=== PATIENT | female | born 1980 | race Caucasian/White ===

== ENCOUNTER 2017-10-01 06:30 | Inpatient (IN) ==
[2017-10-01] MEDS ORDERED: D5 1/2 NS 1000 ML 1,000 ML IV ONE (06:48)
--- NOTE | 2017-10-01 07:24 | DR.OB ---
OB Quick Note - Assessment/Plan Assessment/Plan: L&D 10/01/17 at 7:05am S-No complaint. O-Afebrile,VSS QIJ=678 with good LTV, +accel, no decel. CTX=none CVX=2cm/50%/-1/VTX AROM with clear fluid. IUPC and FSE placed. A-IUP at 39 6/7 weeks for induction AMA P-Begin pitocin induction Anticipate
[2017-10-01] MEDS ORDERED: PHENERGAN INJ 25 MG IV PRN ×2 (07:42→13:52)
[2017-10-01] MEDS ORDERED: REGLAN INJ 10 MG VIAL IVP PRN (07:42)
[2017-10-01] MEDS ORDERED: D5 1/2 NS 1000 ML 1,000 ML IV SCH (07:42)
[2017-10-01] MEDS ORDERED: NUBAIN INJ 200 MG VIAL MULTIDOSE IVP PRN (07:42)
[2017-10-01] MEDS ORDERED: MORPHINE SULFATE INJ 2 MG INJ IVP PRN (07:42)
[2017-10-01] MEDS ORDERED: D5LR 1L W PITOCIN 10 UNITS/L 10 UNITS/1,000 ML BAG IV PRN (07:42)
[2017-10-01] MEDS ORDERED: PITOCIN IVP ONE (07:42)
[2017-10-01] MEDS ORDERED: D5LR 1L W PITOCIN 10 UNITS/L 10 UNITS/1,000 ML BAG IV ONE (07:50)
[2017-10-01] MEDS ORDERED: D5 1/2 NS 1L W PITOCIN 20 UNITS/L 20 UNITS/1,000 ML BAG IV ONE (07:50)
[2017-10-01] MEDS ORDERED: PITOCIN ONE (07:50)
[2017-10-01] MEDS ORDERED: FENTANYL INJ 100 mcg ONE (11:12)
[2017-10-01] MEDS ORDERED: LR 1000 ML IV 1,000 ML IV ONE (11:12)
[2017-10-01] MEDS ORDERED: XYLOCAINE 1 % (PLAIN) ONE (11:12)
[2017-10-01] MEDS ORDERED: NAROPIN EPIDURAL 0.2% + FENTANYL 90MCG 60 ML EPI ONE (11:13)
[2017-10-01] MEDS ORDERED: ADRENALINE CHL INJ ONE (11:13)
[2017-10-01] MEDS: D5 1/2 NS 1000 ML 1,000 ML with PITOCIN 20 UNITS IV SCH ×2 (14:45)
[2017-10-01] MEDS ORDERED: AMBIEN PO PRN (15:12)
[2017-10-01] MEDS ORDERED: ADACEL or BOOSTRIX TDaP VACCINE IM ONE (15:12)
[2017-10-01] MEDS ORDERED: MILK OF MAGNESIA PO PRN (15:12)
[2017-10-01] MEDS: DERMOPLAST SPRAY TOP PRN ×2 (15:44→21:18)
--- NOTE | 2017-10-01 16:49 | DR.OB ---
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 Repetitive late decels noted. Head and direct OA. Suction applied for 3 pushes but cont. to pop off. Wilks forceps easily applied with good fit. Head delivered with one push. Forceps released. Nuchal cord x 1 reduced. Nose and mouth bulb suctioned. Body delivered over intact perineum. Cord clamped x 2 and cut. handed to attendant moving all extremities. Cord sent for gases. Placenta delivered spontaneously / intact / 3 vessel cord. No CVX tears. A small second degree midline tear noted and repaired with 0-vicryl in usual fashion. Viable male , VTX/OA, wt=7'15" and 9/9, stable to NBN. Mother stable to RR. QEW=940vd.
[2017-10-01] MEDS: ZANTAC PO SCH (20:36)
[2017-10-01] MEDS: MOTRIN TAB 800 MG PO PRN (23:27)
[2017-10-02] MEDS: D5 1/2 NS 1000 ML 1,000 ML with PITOCIN 20 UNITS IV SCH ×4 (00:26→05:20)
[2017-10-02 05:18] LABS: HEMATOCRIT 33.2 % (36.0-47.0); HEMOGLOBIN 11.6 g/dL (12.0-16.0)
[2017-10-02] MEDS: ZANTAC PO SCH ×2 (08:06→20:41)
[2017-10-02] MEDS ORDERED: PRENATAL PLUS PO SCH (09:00)
[2017-10-02] MEDS: MOTRIN TAB 800 MG PO PRN ×2 (11:25→23:37)
[2017-10-02] MEDS: DERMOPLAST SPRAY TOP PRN (11:26)
[2017-10-03] MEDS: ZANTAC PO SCH (08:48)
[2017-10-03 10:27] VITALS: BP 148/82
== END 2017-10-03 11:40 | disposition home or self-care (01) | DRG 775 ==
LOC: LD 06:34 → MED/SURG 14:49
PROVIDERS: ADMIT Specialist; ATTEND Specialist
DX: Z3A.39 39 weeks gestation of pregnancy; O70.1 Second degree perineal laceration during delivery; Z37.0 Single live birth
CPT/HCPCS: 36415; 59409; 85014; 85018; A4216; S0197; J0171; J2590; J3010; J7120; S5010

== ENCOUNTER 2020-12-24 06:23 | Inpatient (IN) ==
[2020-12-24 07:02] LABS: AMNISURE ROM TEST THERE IS A RUPTURE (NO RUPTURE)
[2020-12-24] MEDS: PITOCIN ONE ×2 (07:08→08:57)
[2020-12-24] MEDS ORDERED: STADOL INJ ONE (07:21)
[2020-12-24] MEDS: D5 1/2 NS 1,000 ML 1,000 ML with PITOCIN 20 UNITS IV SCH ×4 (07:30→20:36)
[2020-12-24] MEDS ORDERED: D5 1/2 NS 1,000 ML 1,000 ML IV ONE (07:31)
--- NOTE | 2020-12-24 07:31 | DR.OB ---
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 Foot noted in vagina. Patient opted for breech delivery and not able to stop pushing. AROM with clear fluid. Foot noted to deliver (footling breech). Other leg and body delivered vaginally with one push. Body wrapped in towel. Head delivered over intact perineum with several pushes. Nuchal cord x 1 noted. Cord clamped x 2 and cut. Infant handed to attedants. Cord sent for gases. Placenta delivered spontaneously / intact / 3 vessel cord. No CVX tears. A small midline introital tear noted and requiring suture of 0-vicryl in usual fashion. Viable male moving all extremities well. Mother stable to RR. KSY=495ab. 2/8 and wt.=6'6".
[2020-12-24] MEDS ORDERED: BETADINE SOLN ONE (07:32)
[2020-12-24] MEDS ORDERED: D5 1/2 NS 1,000 mL + PITOCIN 20 UNITS/L IV 20 UNITS/1,000 ML BAG IV ONE (07:32)
[2020-12-24] MEDS ORDERED: D5 1/2 NS 1,000 ML 1,000 ML IV SCH (08:00)
[2020-12-24 08:15] LABS: BLOOD UREA NITROGEN 9 mg/dL (7-18); CALCIUM 8.4 mg/dL (8.5-10.1); CARBON DIOXIDE 19.4 mmol/L (21-32); CHLORIDE 105 mmol/L (98-107); COR NA(FOR HYPERGLY) 140 mmol/L (136-145); CREATININE 0.91 mg/dL (0.55-1.02); SODIUM 139 mmol/L (136-145); eGFR NON BLACK RACES > 60 (>60)
[2020-12-24 08:20] LABS: BASOPHILS % (AUTO) 0 % (0.2-1.0); EOSINOPHILS % (AUTO) 0.1 % (0.9-2.9); HEMATOCRIT 38.4 % (36.0-47.0); HEMOGLOBIN 13.6 g/dL (12.0-16.0); LYMPHOCYTES # (AUTO) 0.8 X10^3/uL (1.3-2.9); LYMPHOCYTES % (AUTO) 8.5 % (21.0-51.0); MEAN CORPUSCULAR HEMOGLOBIN 32.1 pg (27.0-34.0); MEAN CORPUSCULAR HGB CONC 35.4 g/dL (33.0-35.0); MEAN CORPUSCULAR VOLUME 90.7 fL (80.0-100.0); MEAN PLATELET VOLUME 9.5 fL (7.4-11.0); MONOCYTES # (AUTO) 0.4 x10^3/uL (0.3-0.8); MONOCYTES % (AUTO) 4.7 % (0.0-13.0); NEUTROPHILS # (AUTO) 8.1 x10^3/uL (2.2-4.8); NEUTROPHILS % (AUTO) 86.7 % (42.0-75.0); PLATELET COUNT 175 X10^3/uL (150.0-450.0); RED BLOOD COUNT 4.23 X10^6/uL (3.5-5.4); RED CELL DISTRIBUTION WIDTH 13.2 % (11.6-16.5); WHITE BLOOD COUNT 9.3 X10^3/uL (3.6-10.0)
[2020-12-24] MEDS ORDERED: PHENERGAN INJ 25 MG IM PRN (08:40)
[2020-12-24] MEDS ORDERED: MOTRIN TAB 800 MG PO PRN (08:40)
[2020-12-24] MEDS ORDERED: AMBIEN PO PRN ×2 (09:20→09:25)
[2020-12-24] MEDS ORDERED: MILK OF MAGNESIA PO PRN ×2 (09:20→09:25)
[2020-12-24] MEDS ORDERED: DERMOPLAST PAIN RELIEF SPRAY TOP PRN ×2 (09:20→09:25)
[2020-12-25 05:07] LABS: HEMATOCRIT 32.9 % (36.0-47.0); HEMOGLOBIN 11.7 g/dL (12.0-16.0)
[2020-12-25] MEDS: D5 1/2 NS 1,000 ML 1,000 ML with PITOCIN 20 UNITS IV SCH ×2 (05:22)
[2020-12-25 08:27] VITALS: BP 122/88
[2020-12-25] MEDS ORDERED: PRENATAL PLUS PO SCH ×2 (09:00)
[2020-12-25] MEDS ORDERED: ADACEL or BOOSTRIX TDaP VACCINE IM ONE ×2 (09:05→09:09)
== END 2020-12-25 10:45 | disposition home or self-care (01) | DRG 807 ==
LOC: ER 06:23 → LD 06:46 → MED/SURG 10:03
PROVIDERS: ADMIT Specialist; ATTEND Specialist
DX: Z20.822 Contact with and (suspected) exposure to COVID-19; O32.8XX0 Maternal care for other malpresentation of fetus, not applicable or unspecified; Z37.0 Single live birth; O70.0 First degree perineal laceration during delivery; Z3A.37 37 weeks gestation of pregnancy